=== PATIENT | male | born 1945 | race Caucasian/White ===

== ENCOUNTER 2023-05-21 08:20 | Outpatient (CLI) | payer MEDICARE, SELFPAY ==
--- NOTE | 2023-05-21 08:45 | CRLHL7_ITS ---
For Patients: As a result of the Century Cures Act, medical imaging exams and procedure reports are released immediately into your electronic medical record. You may view this report before your referring provider. If you have questions, please contact your health care provider. INDICATION: HX ANEURYSMS TECHNIQUE: Bilateral lower extremity arterial duplex ultrasound with color Doppler and spectral waveform analysis. COMPARISON: None. FINDINGS: Multiple sonographic goldberg-scale images demonstrate atherosclerotic plaque in both lower extremities. Right leg: Slightly elevated velocity within the anterior tibial artery. Remaining velocities are not elevated. Monophasic flow located within the popliteal and peroneal arteries along with the anterior tibial and dorsalis pedis arteries. Multiphasic flow elsewhere. Left leg: No elevation in the peak systolic velocity. Monophasic flow throughout the runoff extending from the proximal femoral artery through the dorsalis pedis artery with the exception of the popliteal artery where there is triphasic flow. Multiphasic flow in the common femoral and deep femoral arteries. IMPRESSION: Bilateral atherosclerosis in the lower extremity arteries. No focal high-grade stenosis. Diffuse inflow disease noted, left greater than right. Dictated by Robert Pro MD @ 05/22/2023 11:08:00 AM (Electronically Signed)
--- NOTE | 2023-05-21 10:15 | CRLHL7_ITS ---
For Patients: As a result of the Century Cures Act, medical imaging exams and procedure reports are released immediately into your electronic medical record. You may view this report before your referring provider. If you have questions, please contact your health care provider. Examination: US abdominal aorta Indication: History of aneurysms Technique: Lomas scale and color Doppler images of the aorta and common iliac arteries are obtained. Comparison: None Findings: Proximal aorta: 2.9 x 2.9 cm Mid aorta: 2.5 x 2.7 cm Distal aorta: 3.4 x 4.0 cm Right common iliac artery: 1.9 x 1.9 cm Left common iliac artery: 1.5 x 1.7 cm Recommended imaging interval for ectatic aorta: 4.0-4.4 cm: 1 year Impression: Fusiform infrarenal distal abdominal aortic aneurysm measuring 3.4 x 4.0 cm extending over a length of 5.0 cm. Dictated by Robert Pro MD @ 05/22/2023 11:33:38 AM (Electronically Signed)
== END 2023-05-21 08:21 | disposition home or self-care (01) ==
LOC: US 08:30
PROVIDERS: PCP Nurse Practitioner Gerontology; Visit Provider Nurse Practitioner Gerontology
DX: I71.40 Abdominal aortic aneurysm, without rupture, unspecified (principal); I70.203 Unspecified atherosclerosis of native arteries of extremities, bilateral legs; I72.4 Aneurysm of artery of lower extremity
CPT/HCPCS: 76775; 93926

== ENCOUNTER 2023-09-12 09:33 | Emergency (ER) | payer MEDICARE, OTHER, SELFPAY ==
[2023-09-12] VITALS (11 sets, daily range): BP systolic 120–146; BP diastolic 87–92; PULSE 71–93; RESP 18; TEMP 36.2; O2SAT 92–97; BMI 19.0
--- NOTE | 2023-09-12 09:51 | ED.NAVMDI ---
HPI - Nausea/Vomiting/Diarrhea General Date Seen: 09/12/23 Chief complaint: Nausea/Vomiting Stated complaint: Stomach pain, vomiting Time Seen by Provider: 09/12/23 09:35 Source: patient Mode of arrival: ambulatory Limitations: no limitations History of Present Illness HPI Narrative: Patient is a 78-year-old male presenting to emergency department for nausea, vomiting, abdominal pain. He states since yesterday he has been having nausea and vomiting. It started after he ate a large breakfast in toto very fall. He continues to have the sensation throughout the day and can eat any more. Last night tried to drink some kendall jalen and proceeded to vomit multiple times. Woke up this morning at 05:30 in vomited more. Last time he vomited was 08:00 today. Has not noticed any blood in his vomit. States he is having some abdominal pain mostly in his epigastric and right lower groin. Does have a history of multiple hernias with repairs. This hernia in his right groin use a goes in and out on its own but states he has been unable pressure back and since last night. It is tender to palpation. States he is not nausea right now overall symptoms feel relatively mild. No other concerns noted. Related Data Home Medications Medication Instructions Recorded Confirmed clopidogrel 75 mg tablet 75 mg PO DAILY 09/12/23 09/12/23 pantoprazole 40 mg tablet,delayed 40 mg PO DAILY 09/12/23 09/12/23 release Allergies Allergy/AdvReac Type Severity Reaction Status Date / Time No Known Drug Allergies Allergy Verified 09/12/23 09:40 Review of Systems Status of ROS: Reports: 10 or more systems reviewed and unremarkable except as noted in History and below Exam Narrative: Exam Narrative: Const: Well-nourished, Well-developed, in mild distress Eyes: PERRL, no conjunctival injection, and symmetrical lids HENT: Atraumatic external nose and ears. Moist mucous membranes. Neck: Symmetric, trachea midline, No thyromegaly. CVS: RRR, No murmurs or gallops. Peripheral pulses 2+ and equal in all extremities RESP: Unlabored respiratory effort. Clear to auscultation bilaterally. GI: Mild diffuse tenderness, Nondistended, No rebound or guarding. On reducible right inguinal hernia MSK:Extremities w/o deformity, Normal Active ROM Skin: Warm, Dry. No rashes or lesions. Neuro: Normal Muscle tone, No focal neurological deficits. Psych: Awake, Alert, & Oriented x3. Appropriate mood and affect. Const: Vital Signs, click to edit/add: Vital Signs - 24 hr 09/12/23 09:37 09/12/23 10:41 09/12/23 10:42 Temperature 97.2 F L Pulse Rate 78 84 Pulse Rate [Right Pulse Oximeter] 93 Respiratory Rate 18 Blood Pressure 146/92 H Blood Pressure [Ri ght Upper Arm] 120/87 Pulse Oximetry 94 97 95 Oxygen Delivery Me thod Room Air 09/12/23 10:45 09/12/23 11:00 09/12/23 11:15 Temperature Pulse Rate 77 74 74 Pulse Rate [Right Pulse Oximeter] Respiratory Rate Blood Pressure Blood Pressure [Ri ght Upper Arm] Pulse Oximetry 93 95 96 Oxygen Delivery Me thod 09/12/23 11:41 09/12/23 11:45 09/12/23 12:00 Temperature Pulse Rate 79 74 71 Pulse Rate [Right Pulse Oximeter] Respiratory Rate Blood Pressure Blood Pressure [Ri ght Upper Arm] Pulse Oximetry 96 95 Oxygen Delivery Me thod 09/12/23 12:15 09/12/23 12:30 Temperature Pulse Rate 80 79 Pulse Rate [Right Pulse Oximeter] Respiratory Rate Blood Pressure Blood Pressure [Ri ght Upper Arm] Pulse Oximetry 92 95 Oxygen Delivery Me thod Course Vital Signs Vital signs: Initial Vital Signs Temperature 97.2 F L 09/12/23 09:37 Temperature Source Temporal Artery Scan 09/12/23 09:37 Pulse Rate 93 09/12/23 09:37 Respiratory Rate 18 09/12/23 09:37 Blood Pressure 120/87 09/12/23 09:37 Blood Pressure Mean 98 09/12/23 09:37 Blood Pressure Position Sitting 09/12/23 09:37 Pulse Oximetry 94 09/12/23 09:37 Oxygen Delivery Method Room Air 09/12/23 09:37 Vital Signs Temperature 97.2 F L 09/12/23 09:37 Pulse Rate 93 09/12/23 09:37 Respiratory Rate 18 09/12/23 09:37 Blood Pressure 120/87 09/12/23 09:37 Pulse Oximetry 94 09/12/23 09:37 Oxygen Delivery Method Room Air 09/12/23 09:37 Temperature 97.2 F L 09/12/23 09:37 Pulse Rate 79 09/12/23 12:30 Respiratory Rate 18 09/12/23 09:37 Blood Pressure 146/92 H 09/12/23 10:41 Pulse Oximetry 95 09/12/23 12:30 Oxygen Delivery Method Room Air 09/12/23 09:37 Medications Administered Medications: Discontinued Medications Generic Name Dose Route Start Last Admin Trade Name Genet PRN Reason Stop Dose Admin Lactated Ringer's 1,000 mls @ 1,000 mls/hr 09/12/23 09:49 09/12/23 11:48 Lactated Ringers 1000 Ml IV 09/12/23 10:48 Infused .Q1H ONE Infusion Morphine Sulfate 4 mg 09/12/23 09:49 09/12/23 10:39 Morphine 4 Mg/Ml Inj IVP 09/12/23 09:50 4 mg ONCE ONE Administration Ondansetron HCl 4 mg 09/12/23 09:49 09/12/23 10:39 Ondansetron 2 Mg/Ml Inj IVP 09/12/23 09:50 4 mg ONCE ONE Administration MDM - Nausea/Vomiting/Diarrhea MDM Narrative Medical decision making narrative: Patient is a 78-year-old male presenting to the emergency department for abdominal pain and nausea. He is not currently feeling nauseated this is consistent feeling of fullness in his abdomen. He has a right inguinal hernia that is not reducible at this time. It does not appear strangulated as there is no color changes and the tenderness is relatively mild. At this time I will place him in Trendelenburg position and and plan ice pack or over the area to try and help with swelling so that it can be reduced. Also ordered CBC, troponin, CMP, EKG, COVID/flu/RSV, lipase. Morphine given for pain and Zofran for nausea. Also given L of lactated Ringer's Patient's lab work all returned showing no concerning abnormalities. COVID/flu/RSV was negative. After an hour I re-evaluated the patient in was able to reduce the hernia. After this he says all symptoms seem to have gone away and he is feeling much better. While his issues likely resolved with the reduction of the hernia I will do a CT scan to make sure there are no other abnormalities going on. His CT scan returned showing small-bowel obstruction likely from adhesions in the right lower quadrant consistent where the hernia was. I spoke to Dr. Zhang about this and she states this is likely secondary to the hernia being reduced. She states we can monitor him for 6 hours if he is able to tolerate p.o. intake he we discharged home with outpatient surgical follow-up. Of note CT scan also shows some aorta and iliac artery aneurysms. They do not meet criteria for surgical intervention at this time. Patient has been given fluids orally and he has been tolerating them well. He states he is still feeling asymptomatic we were able to monitor the patient for 4-1/2 hours he was asymptomatic throughout this time. We starting to run low in beds. I spoke to Dr. Brown she says typically she prefers 6 hours but if I feel clinically comfortable discharging the patient she is okay with it. She has once in the follow-up with general surgery. He continues to do well and is doing well with p.o. intake. He will be discharged Lab Data Labs: Lab Results 09/12/23 09/12/23 09/12/23 Range/Units 09:50 10:00 Unknown WBC 7.02 (4.50-11.00) K/uL RBC 5.30 (4.30-5.90) m/uL Hgb 16.0 (13.5-17.5) gm/dL Hct 47.6 (37.0-53.0) % MCV 90 (80-100) fL MCH 30 (26-34) pg MCHC 34 (32-36) gm/dL RDW Coeff of Ankur 13.8 (11.5-15.5) % Plt Count 274 (140-440) K/uL Neut % (Auto) 85.5 H (42.0-72.0) % Lymph % (Auto) 9.3 L (20-44) % Archuleta % (Auto) 5.1 (0.0-11.0) % Eos % (Auto) 0.0 (0.0-7.0) % Baso % (Auto) 0.1 (0.0-3.0) % Neut # (Auto) 6.00 (1.7-7.0) K/uL Lymph # (Auto) 0.70 L (0.90-2.90) K/uL Archuleta # (Auto) 0.40 (0.00-0.90) K/UL Eos # (Auto) 0.00 (0.00-0.50) K/uL Baso # (Auto) 0.01 (0.00-0.30) K/uL Abs Immat Gran (auto) 0.00 (0.00-0.30) K/uL Imm/Tot Granulo (auto) 0.0 % Sodium 136 (135-149) mmol/L Potassium 4.5 (3.6-5.1) mmol/L Chloride 101 (96-114) mmol/L Carbon Dioxide 23 (20-32) mmol/L Anion Gap 12 (7-15) mEq/L BUN 39 H (7-30) mg/dL Creatinine 0.6 (0.5-1.5) mg/dL Estimated Creat Clear 45.25 Estimated GFR 99 ml/min Glucose 136 H (60-115) mg/dL Calcium 10.0 (8.4-10.6) mg/dL Total Bilirubin 1.0 (0.1-1.5) mg/dL AST 44 H (12-35) U/L ALT 25 (4-50) U/L Alkaline Phosphatase 44 (40-150) U/L Total Protein 8.3 (6.0-8.3) g/dL Albumin 5.0 (3.3-5.0) g/dL Lipase 29 (23-300) U/L SARS-CoV-2 (PCR) Negative SARS-CoV-2 (Negative) Influenza Type A (PCR) Negative PCR FLU A (Negative) Influenza Type B (PCR) Negative PCR FLU B (Negative) RSV (PCR) Negative PCR RSV (Negative) POC Troponin I 0.02 (0.01-0.04) ng/ml Imaging Data CT scan abdomen and pelvis: Radiologist's impression: 1. Small-bowel obstruction with apparent adhesive transition point in the right lower quadrant. No findings of a closed loop morphology or ischemia. 2. 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 Abdominal aorta up to 3.5 centimeters. The right common iliac artery measures up to 2.7 centimeters. The left common iliac artery measures up to 2.5 centimeters. Please note that all CT scans at this facility use dose modulation, iterative reconstruction, and/or weight-based dosing when appropriate to reduce radiation dose to as low as reasonably achievable. Dictated by Dana Sanchez MD @ 09/12/2023 11:54:07 AM ECG Data Attestation: I personally reviewed and interpreted this ECG as follows: Prior ECG tracings: not available for review Interpretation: Normal sinus rhythm with a rate of 87 beats per minute, PVCs, left bundle branch block, appropriate discordance, no ST or T-wave abnormalities Discharge Plan Discharge Clinical Impression: Inguinal hernia Qualifiers: Obstruction and gangrene presence: without obstruction or gangrene Laterality: unilateral Recurrence: recurrent Qualified Code(s): K40.91 - Unilateral inguinal hernia, without obstruction or gangrene, recurrent Patient Disposition: Home, Self-Care Condition: Improved Instructions: Inguinal Hernia (ED) Additional Instructions: Follow-up with general surgery for your hernia call them at [phone]. Informed them that Dr. Zhang toe the ED provider that you should follow-up with general surgery. Return to emergency department if you are unable to reduce the hernia or if you develops any new or worsening symptoms as a could be is sign of severe bowel disease. Also recommend you follow-up with your primary care provider possibly vascular surgery about your aneurysms in your aorta and common iliac arteries Prescriptions: No Action clopidogrel 75 mg tablet 75 mg PO DAILY pantoprazole 40 mg tablet,delayed release (DR/EC) 40 mg PO DAILY Follow Up/Referrals: Sole Peace DNP, RN [Primary Care Provider] - Stand Alone Forms: [employer] Info Instructions
[2023-09-12 10:37] LABS: Troponin, Point-of-Care* 0.02 ng/ml (0.01-0.04)
[2023-09-12] MEDS: ONDANSETRON 2 MG/ML inj 4 MG IVP (10:39)
[2023-09-12] MEDS: MORPHINE 4 MG/ML INJ IVP (10:39)
[2023-09-12] MEDS: LACTATED RINGERS 1000 ML 1,000 ML IV (10:39)
[2023-09-12 10:53] LABS: Basophils Absolute Auto 0.01 K/uL (0.00-0.30); Basophils Percent Auto 0.1 % (0.0-3.0); Hematocrit 47.6 % (37.0-53.0); Lymphocytes Percent Auto 9.3 % (20-44); Mean Corpuscular HGB Conc 34 gm/dL (32-36); Mean Corpuscular Hemoglobin 30 pg (26-34); Mean Corpuscular Volume 90 fL (80-100); Monocytes Percent Auto 5.1 % (0.0-11.0); Neutrophils Percent Auto 85.5 % (42.0-72.0); Platelet Count* 274 K/uL (140-440); RDW Coefficient of Variation % 13.8 % (11.5-15.5); White Blood Count* 7.02 K/uL (4.50-11.00)
[2023-09-12 10:56] LABS: Slide Review Reflex No
[2023-09-12 11:00] LABS: Chloride* 101 mmol/L (96-114); Potassium* 4.5 mmol/L (3.6-5.1); Sodium* 136 mmol/L (135-149)
[2023-09-12 11:02] LABS: Creatinine* 0.6 mg/dL (0.5-1.5); Est. Creatinine Clearance* 45.25; Estimated Glomerular Filt Rate 99 ml/min
[2023-09-12 11:03] LABS: Alanine Aminotransferase* 25 U/L (4-50); Alkaline Phosphatase* 44 U/L (40-150); Anion Gap 12 mEq/L (7-15); Aspartate Amino Transferase* 44 U/L (12-35); Blood Urea Nitrogen* 39 mg/dL (7-30); Carbon Dioxide* 23 mmol/L (20-32); Glucose* 136 mg/dL (60-115); Lipase* 29 U/L (23-300); Total Protein* 8.3 g/dL (6.0-8.3)
--- NOTE | 2023-09-12 11:22 | CT_ITS ---
Patient: LOVE MALONE Facility:?[facility] Patient ID:?[id number] Site Patient ID:?[id number]. Site :?[id number] Study:?CT-Abdomen/Pelvis w/ 56cc [id number]/24/2024 11:38:33 AM Ordering Physician:Leigh Cooper Final Report: Indication: Nausea vomiting and abdominal pain. Right inguinal hernia. Technique: CT abdomen pelvis with IV contrast. Multiplanar reformats are included. Contrast: 56 mL Isovue [address] Please note that all CT scans at this facility use dose modulation, iterative reconstruction, and/or weight-based dosing when appropriate to reduce radiation dose to as low as reasonably achievable. Comparison: None Findings: Lung bases are clear. The liver and hepatic vasculature is normal. The gallbladder is significantly distended. There is mild intrahepatic and extrahepatic biliary ductal dilatation with tapering towards the ampulla. The pancreas is normal. The spleen is normal. The adrenal glands are normal. Small left renal cyst. The kidneys are otherwise normal. The urinary tract is normal. The urinary bladder is partially filled and appears normal. Heavy atherosclerotic calcifications. Infrarenal aortic aneurysm measuring up to 3.5 centimeters. Bilateral common iliac artery aneurysms extending all the way to the bifurcation. The stomach is decompressed. The duodenum is decompressed. The proximal small bowel is decompressed. There is dilated distal small bowel in the pelvis. Luminal diameter up to 3.3 centimeters. The wall is thin and normally enhancing. Suspect there is a focal transition point in the right lower quadrant posteriorly. No closed loop morphology or findings of ischemia. There is a small amount of stool in the colon. The colon is not dilated. Minimal fluid in the right inguinal hernia. No bowel seen within the hernia. Severely low visceral and subcutaneous fat. No focal bone lesions. No fractures. Impression: 1. Small-bowel obstruction with apparent adhesive transition point in the right lower quadrant. No findings of a closed loop morphology or ischemia. 2. 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 Abdominal aorta up to 3.5 centimeters. The right common iliac artery measures up to 2.7 centimeters. The left common iliac artery measures up to 2.5 centimeters. Please note that all CT scans at this facility use dose modulation, iterative reconstruction, and/or weight-based dosing when appropriate to reduce radiation dose to as low as reasonably achievable. Dictated by Dana Sanchez MD @ 09/12/2023 11:54:07 AM Signed by:?Dana Sanchez MD @09/12/2023 11:54:07 AM (Electronic Signature)
[2023-09-12 11:23] LABS: PCR FLU A Negative PCR FLU A (Negative); PCR FLU B Negative PCR FLU B (Negative); PCR RSV Negative PCR RSV (Negative); SARS PCR* Negative SARS-CoV-2 (Negative)
--- NOTE | 2023-09-12 12:51 | ED.NURSE ---
Patient given apple juice and jello.
--- NOTE | 2023-09-12 13:09 | ED.NURSE ---
Checked on patient at this time, no pain and tolerating clear liquids with no concerns. States he plans to rest the majority of the day since he didn't get much sleep last night.
--- NOTE | 2023-09-12 14:29 | ED.NURSE ---
Checked in on patient at this time, he is sleeping soundly.
== END 2023-09-12 15:35 | disposition home or self-care (01) ==
PROVIDERS: Emergency Provider Student in an Organized Health Care Education/Training Program; PCP Nurse Practitioner Gerontology
DX: K40.90 Unilateral inguinal hernia, without obstruction or gangrene, not specified as recurrent (principal)
CPT/HCPCS: 36415; 74177; 80053; 83690; 84484; 85025; 87631; 93005; 96361; 96374; 96375; 99283; 99284; 99285; J2270; J2405; J7120; Q9967

== ENCOUNTER 2023-10-25 15:31 | Day surgery (SDC) | payer MEDICARE, OTHER, SELFPAY ==
[2023-10-25 15:40] VITALS: BP 183/106; PULSE 67; RESP 16; TEMP 36.4; O2SAT 98; BMI 18.3
--- NOTE | 2023-10-25 16:27 | ED.ABDPAIN ---
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 Patient notes that shortly after breakfast at 0900 hours he had bulging in this area. He states he tried to walk it off but it has not helped. Any sort of pressure on the area increases pain. He does endorse some bloating as he states he had a large meal at lunch. He notes no nausea at this point. Previous visit for this thing resulted in reduction of the hernia. He did tolerate morphine without difficulty. No recent fever or chills. Denies dysuria hematuria but does need to use the restroom. 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 He has met with a vascular surgeon Dr. Bettina Haque. Related Data Home Medications Medication Instructions Recorded Confirmed clopidogrel 75 mg tablet 75 mg PO DAILY 09/12/23 10/01/23 pantoprazole 40 mg tablet,delayed 40 mg PO DAILY 09/12/23 10/01/23 release aspirin 81 mg chewable tablet 81 mg PO QDAY 10/01/23 10/01/23 hydrocortisone 2.5 % topical cream applic topical 10/01/23 10/01/23 pseudoephedrine HCl 30 mg tablet 30 mg PO Q4-6H PRN 10/01/23 10/01/23 (Sudafed) rosuvastatin 10 mg tablet 10 mg PO QPM 10/01/23 10/01/23 Allergies Allergy/AdvReac Type Severity Reaction Status Date / Time No Known Drug Allergies Allergy Verified 10/01/23 13:55 Review of Systems Status of ROS Reports: 10 or more systems reviewed and unremarkable except as noted in History and below Const Denies: fever or chills ENMT Denies: neck pain or throat swelling Cardio Denies: chest pain, swelling of feet/ankles, lightheadedness or shortness of breath with exertion Resp Denies: shortness of breath or cough GI Reports: abdominal pain and bloating; Denies: nausea, vomiting, diarrhea, constipation or blood in stool Denies: painful urination or urinary frequency Musculo Denies: neck pain Allergy/Immuno Denies: throat swelling Exam Narrative: Exam Narrative: Patient is alert and oriented. Does not appear to be any significant distress. External ears eyes nose clear. Oral cavity with moist mucous membranes. Neck is supple. Heart with regular rate and rhythm and lungs are clear bilaterally. Abdomen is with a obvious golf size type bulge at the right groin attempts at reduction increased pain greatly. Decreased bowel sounds are noted. Moving all extremities. No obvious erythema. Const: Vital Signs, click to edit/add: Vital Signs - 24 hr 10/25/23 15:40 Temperature 97.5 F L Pulse Rate [Pulse Oximeter] 67 Respiratory Rate 16 Blood Pressure [Ri ght Upper Arm] 183/106 H Pulse Oximetry 98 Oxygen Delivery Me thod Room Air Documenting provider has reviewed patient's vital signs: yes Course Course ED Course: At this time patient has a golf size bulging right groin superior to the ligament. Attempts at reduction unsuccessful and thus we will place an IV and use morphine 4 mg Zofran 4 mg and attempt reduction. Have added lactate to labs to include CBC, comprehensive panel, CRP. At this point greater than 7 hours have elapsed since patient 1st noticed this bulging. Reevaluation(s) Reevaluation #1: Initial attempts at hernia reduction unsuccessful. Patient noted to have significant discomfort in spite of morphine use. Have replaced ice to this area and ordered additional 4 mg of morphine. Patient in Trendelenburg. Reevaluation #2: My colleague Dr. Fisher and I both try to reduce hernia and were unsuccessful in this. Surgeon notified and it is going to attempt to help us with this endeavor. Will plan on additional pain medication about 15 minutes prior to surgeon arrival. Reevaluation #3: Unfortunately ease surgeon could not reduce hernia. He will need surgery but of course is at higher risk given his history. I do speak to Rich and he also did describes past history of bilateral DVT post hernia repair in 2013. I have asked Dr. Virgen our hospitalist to consult on this gentleman. Rich does tell me that he wishes to be DNR DNI if something would happen the operating room. I do speak with Rich with his son present. At this time he is at increased risk undergoing anesthesia with his history and age. Vital Signs Vital signs: Initial Vital Signs Temperature 97.5 F L 10/25/23 15:40 Temperature Source Temporal Artery Scan 10/25/23 15:40 Pulse Rate 67 10/25/23 15:40 Respiratory Rate 16 10/25/23 15:40 Blood Pressure 183/106 H 10/25/23 15:40 Blood Pressure Mean 131 H 10/25/23 15:40 Pulse Oximetry 98 10/25/23 15:40 Oxygen Delivery Method Room Air 10/25/23 15:40 Vital Signs Temperature 97.5 F L 10/25/23 15:40 Pulse Rate 67 10/25/23 15:40 Respiratory Rate 16 10/25/23 15:40 Blood Pressure 183/106 H 10/25/23 15:40 Pulse Oximetry 98 10/25/23 15:40 Oxygen Delivery Method Room Air 10/25/23 15:40 Temperature 97.5 F L 10/25/23 15:40 Pulse Rate 67 10/25/23 15:40 Respiratory Rate 16 10/25/23 15:40 Blood Pressure 183/106 H 10/25/23 15:40 Pulse Oximetry 98 10/25/23 15:40 Oxygen Delivery Method Room Air 10/25/23 15:40 Medications Administered Medications: Discontinued Medications Generic Name Dose Route Start Last Admin Trade Name Freq PRN Reason Stop Dose Admin Hydromorphone HCl 0.5 mg 10/25/23 17:58 10/25/23 18:31 Hydromorphone 0.5 Mg/0.5 Ml Inj IVP 10/25/23 17:59 0.5 mg ONCE ONE Administration Morphine Sulfate 4 mg 10/25/23 16:33 10/25/23 16:44 Morphine 4 Mg/Ml Inj IVP 10/25/23 16:34 4 mg ONCE ONE Administration Morphine Sulfate 4 mg 10/25/23 17:28 10/25/23 17:46 Morphine 4 Mg/Ml Inj IVP 10/25/23 17:29 4 mg ONCE ONE Administration Ondansetron HCl 4 mg 10/25/23 16:33 10/25/23 16:44 Ondansetron 2 Mg/Ml Inj IVP 10/25/23 16:34 4 mg ONCE ONE Administration MDM - Abdominal Pain MDM Narrative Medical decision making narrative: 1. Incarcerated inguinal hernia-failed attempts at reduction by myself, a partner as well as surgeon. Lactate is 1.0. The decision for surgery is challenging given his history. I have asked Dr. Virgen hospitalist to consult on this case. I do discuss with patient with family present that he is a higher risk for surgical complications. I do ask him about code status. If something would happen to his heart he would not want to be resuscitated. Therefore I do state he would be DNI DNI with family present. This was conveyed to Dr. Virgen. 2. History of vascular aneurysms -very aneurysm 3 mm noted by neurologist. Follow-up with Neuro recommended. Abdominal aortic aneurysm 3 cm and iliac aneurysm noted. However they do not approach surgical intervention at this time. No particular care at this time and they do suggest continued monitoring. 3. Disposition -admit to same-day surgery under the care of . Dr. Virgen has consulted in feels this gentleman is safe for surgery. Dr. Virgen agrees to be primary with surgical consult. Currently pending is an EKG. I have also started maintenance fluids at 125 mL an hour lactated Ringer's. Medical Records Attestation: I reviewed the patient's medical records. Lab Data Attestation: I reviewed the patient's lab results. Labs: Lab Results 10/25/23 Range/Units 16:39 WBC 3.78 L (4.50-11.00) K/uL RBC 4.54 (4.30-5.90) m/uL Hgb 13.8 (13.5-17.5) gm/dL Hct 41.8 (37.0-53.0) % MCV 92 (80-100) fL MCH 30 (26-34) pg MCHC 33 (32-36) gm/dL RDW Coeff of Ankur 14.6 (11.5-15.5) % Plt Count 230 (140-440) K/uL Neut % (Auto) 52.5 (42.0-72.0) % Lymph % (Auto) 27.2 (20-44) % [place]ory % (Auto) 11.6 H (0.0-11.0) % Eos % (Auto) 7.4 H (0.0-7.0) % Baso % (Auto) 1.3 (0.0-3.0) % Neut # (Auto) 2.00 (1.7-7.0) K/uL Lymph # (Auto) 1.00 (0.90-2.90) K/uL [place] # (Auto) 0.40 (0.00-0.90) K/UL Eos # (Auto) 0.30 (0.00-0.50) K/uL Baso # (Auto) 0.00 (0.00-0.30) K/uL Abs Immat Gran (auto) 0.00 (0.00-0.30) K/uL Imm/Tot Granulo (auto) 0.0 % Sodium 136 (135-149) mmol/L Potassium 4.1 (3.6-5.1) mmol/L Chloride 102 (96-114) mmol/L Carbon Dioxide 29 (20-32) mmol/L Anion Gap 5 L (7-15) mEq/L BUN 22 (7-30) mg/dL Creatinine 0.7 (0.5-1.5) mg/dL Estimated Creat Clear 43.66 Estimated GFR 95 ml/min Glucose 115 (60-115) mg/dL Lactate 1.0 (0.5-1.9) mmol/L Calcium 9.4 (8.4-10.6) mg/dL Total Bilirubin 0.4 (0.1-1.5) mg/dL AST 30 (12-35) U/L ALT 18 (4-50) U/L Alkaline Phosphatase 47 (40-150) U/L C-Reactive Protein < 0.5 L (0.5-1.0) mg/dL Total Protein 6.9 (6.0-8.3) g/dL Albumin 4.1 (3.3-5.0) g/dL ECG Data Attestation: I personally reviewed and interpreted this ECG as follows: Interpretation: EKG by my read shows sinus rhythm. Left bundle branch block is present. QT and IA intervals within normal limits. Compared with EKG from August of 2019 for this is largely unchanged. Critical Care Time Critical Care Time Critical Care Time: Yes Attestation: The patient required my highest level preparedness to intervene emergently and I personally spent this critical care time directly and personally managing the patient. This critical care time included: Obtaining a history; Examining the patient; Pulse oximetry; Ordering and reviewing of studies; Arranging urgent treatment with development of a management plan; Evaluation of patients response to treatment; Frequent reassessment discussions with other providers. This critical care time was performed to assess and manage the high probability of imminent life-threatening deterioration that could result in multiorgan failure. It was exclusive of separate billable procedures and treating other patients and teaching time. Total Critical Care Time in Minutes: 60 Discharge Plan Discharge Clinical Impression: Right inguinal hernia Patient Disposition: XFER to OR Condition: Guarded Follow Up/Referrals: Sole Peace DNP, RN [Primary Care Provider] -
[2023-10-25] MEDS: ONDANSETRON 2 MG/ML inj 4 MG IVP (16:44)
[2023-10-25] MEDS: MORPHINE 4 MG/ML INJ IVP ×2 (16:44→17:46)
[2023-10-25 16:47] LABS: Basophils Percent Auto 1.3 % (0.0-3.0); Eosinophils Percent Auto 7.4 % (0.0-7.0); Hematocrit 41.8 % (37.0-53.0); Hemoglobin* 13.8 gm/dL (13.5-17.5); Lymphocytes Percent Auto 27.2 % (20-44); Mean Corpuscular HGB Conc 33 gm/dL (32-36); Mean Corpuscular Hemoglobin 30 pg (26-34); Mean Corpuscular Volume 92 fL (80-100); Monocytes Percent Auto 11.6 % (0.0-11.0); Neutrophils Percent Auto 52.5 % (42.0-72.0); Platelet Count* 230 K/uL (140-440); RDW Coefficient of Variation % 14.6 % (11.5-15.5); Red Blood Count 4.54 m/uL (4.30-5.90); White Blood Count* 3.78 K/uL (4.50-11.00)
[2023-10-25 16:48] LABS: Slide Review Reflex No
[2023-10-25 16:59] LABS: Albumin* 4.1 g/dL (3.3-5.0); Chloride* 102 mmol/L (96-114); Potassium* 4.1 mmol/L (3.6-5.1); Sodium* 136 mmol/L (135-149)
[2023-10-25 17:01] LABS: Bilirubin Total* 0.4 mg/dL (0.1-1.5); Creatinine* 0.7 mg/dL (0.5-1.5); Est. Creatinine Clearance* 43.66; Estimated Glomerular Filt Rate 95 ml/min
[2023-10-25 17:02] LABS: Alanine Aminotransferase* 18 U/L (4-50); Alkaline Phosphatase* 47 U/L (40-150); Anion Gap 5 mEq/L (7-15); Aspartate Amino Transferase* 30 U/L (12-35); Blood Urea Nitrogen* 22 mg/dL (7-30); Carbon Dioxide* 29 mmol/L (20-32); Glucose* 115 mg/dL (60-115); Total Protein* 6.9 g/dL (6.0-8.3)
[2023-10-25 17:03] LABS: Calcium* 9.4 mg/dL (8.4-10.6)
[2023-10-25 17:05] LABS: C Reactive Protein* < 0.5 mg/dL (0.5-1.0)
[2023-10-25] MEDS: HYDROmorphone 0.5 mg/0.5 ml inj IVP (18:31)
--- NOTE | 2023-10-25 19:25 | PM.GSHP ---
History of Present Illness History of Present Illness Date Seen: 10/25/23 Chief complaint: bowel obstruction Narrative: Rich Lua is a 78 year old male who presented to the emergency department with an incarcerated right inguinal hernia. He does have a known hernia on that side and was originally scheduled to have it repaired by myself on 10/20/2023. Unfortunately this surgery was cancelled due to a recent diagnosis of reyes aneurysm found on angiogram. He has not yet been seen by Neurology for evaluation. Patient does have a known history of multiple aneurysms including aortic, thoracic, bilateral iliac and popliteal bilaterally. He does have a history of bilateral popliteal aneurysm repair. Patient states that shortly after breakfast he had a bulging in the right groin. This has happened in the past. He tried to walk it off, but that did not help. Any sort of pressure to the area caused an increase in pain. He did have a large meal at lunch, which cause some bloating. He has not eaten since noon. He has tried to ice the area and the hernia has been attempted to be reduced x2 here in the emergency department, but still persists. The area is tender to palpation. No recent fever chills. He has not had any nausea or vomiting. Review of Systems Status of ROS: Reports: 6 or more systems reviewed and unremarkable except as noted in History and below Meds Home Medications and Allergies Home Medications Medication Instructions Recorded Confirmed Type clopidogrel 75 mg tablet 75 mg PO DAILY 09/12/23 10/01/23 History pantoprazole 40 mg tablet,delayed 40 mg PO DAILY 09/12/23 10/01/23 History release aspirin 81 mg chewable tablet 81 mg PO QDAY 10/01/23 10/01/23 History hydrocortisone 2.5 % topical cream applic topical 10/01/23 10/01/23 History pseudoephedrine HCl 30 mg tablet 30 mg PO Q4-6H PRN 10/01/23 10/01/23 History (Sudafed) rosuvastatin 10 mg tablet 10 mg PO QPM 10/01/23 10/01/23 History Allergies Allergy/AdvReac Type Severity Reaction Status Date / Time No Known Drug Allergies Allergy Verified 10/01/23 13:55 Exam Narrative: Exam Narrative: General: Alert and oriented, no acute distress. Respiratory: Equal breath rise bilaterally, clear breath sounds bilaterally CV: Well perfused Abdomen: Soft, nontender nondistended : Golf sized bulge of the right groin. A reduction was attempted and not successful. Area is tender to palpation. No overlying erythema to the area. Const: Vital Signs, click to edit/add: Vital Signs - 24 hr 10/25/23 15:40 Temperature 97.5 F L Pulse Rate [Pulse Oximeter] 67 Respiratory Rate 16 Blood Pressure [Ri ght Upper Arm] 183/106 H Pulse Oximetry 98 Oxygen Delivery Me thod Room Air Results Results Labs: No leukocytosis or elevation in CRP. Progress Note:A&P Assessment and plan (1) Right inguinal hernia: Status: Acute Assessment and Plan: Patient is a 78-year-old male who presents with an incarcerated right inguinal hernia. This is not able to be reduced at bedside. Risks and benefits of operative intervention were discussed at length with the patient. Patient does have a high risk of postop complication, given his history of aneurysms and current reyes aneurysm being evaluation by Neuro Interventional radiology. He continues on Plavix and aspirin, no other anticoagulation. He is not a candidate for a spinal anesthesia. Would plan for an open approach under mac and local anesthesia. If there is evidence of necrotic bowel within the hernia the anesthesia will need to be converted to a general anesthetic in order to proceed with a bowel resection. Risks and benefits of operative repair were discussed at length with the patient. Risks included, but were not limited to: Bleeding, infection, risk of damage to surrounding structures, risk of recurrence and expected postop recovery. All questions and concerns were addressed with patient agreeing to proceed.
[2023-10-25] MEDS: LACTATED RINGERS 1000 ML 1,000 ML 125 ML IV (21:00)
[2023-10-25] MEDS: PIPERACILLIN/TAZOBACTAM 3.375 GM INJ IVPB (21:40)
[2023-10-25] MEDS: BUPIVACAINE 0.25% 30 ML INJECTION (21:52)
--- NOTE | 2023-10-25 22:03 | P.IMHP_ITS ---
Hospitalist- H&P: ROSMERY History of Present Illness Date Seen: 10/25/23 Chief complaint: bowel obstruction Narrative: Rich Lua is a 78 year old male admitted through the emergency department with a right inguinal hernia. Patient has a history of right inguinal hernia which has been bothering him on and off for months. Typically he gets a pain which causes him to throw up and then he feels better. September 12 he came to the emergency room because he was not feeling better. He had a hernia reduced during that visit. He was to have surgery to have a hernia repair but this was postponed due to concerns about multiple aneurysms. His pain started around lunch today. He has not had any vomiting today. He otherwise reports generally feeling well. His longstanding known aneurysms. Popliteal aneurysms were repaired in 2014 and 2019. He also has an infrarenal abdominal aortic aneurysm which is 3 x 3 cm and right common iliac artery aneurysm at 2.5 cm and left common iliac artery aneurysm at 2.9 cm. He has a 3 mm right supraclinoid ICA aneurysm. He was seen by Dr Av Christy, endovascular surgery at [place]. The plan outlined on 10/20/2023 was to do ongoing surveillance of his AAA and iliac aneurysms. (Repair of the AAA at 5.5 cm and the iliac aneurysms at 3.5 cm). Refer to Interventional Neuro Radiology for recommendations about the reyes aneurysm. Patient is unaware of personal or family history of other connective tissue disease problems other than his aneurysms and hernias. He has had previous DVT following a previous hernia surgery. Patient is unaware of previous atherosclerotic obstructive vascular disease. Patient is on dual anti-platelet therapy and statin. Denies a history of bleeding except on his dual anti platelet therapy he does bleed more easily Review of Systems Narrative: Reports generally feeling well other than as noted above [facility] Medical History (Updated 10/25/23 @ 22:33 by Miguel Angel Virgen MD) Chronic rhinitis ?J31.0 - Chronic rhinitis (ICD-10) DVT (deep venous thrombosis) ?I82.409 - Acute embolism and thrombosis of unspecified deep veins of unspecified lower extremity (ICD-10) Aneurysm of abdominal aorta ?I71.40 - Abdominal aortic aneurysm, without rupture, unspecified (ICD-10) Aneurysm artery, iliac common ?I72.3 - Aneurysm of iliac artery (ICD-10) Aneurysm artery, popliteal ?I72.4 - Aneurysm of artery of lower extremity (ICD-10) Surgical History (Updated 10/25/23 @ 22:24 by Miguel Angel Virgen MD) History of hernia repair ?Z98.890 - Other specified postprocedural states (ICD-10) ?Z87.19 - Personal history of other diseases of the digestive system (ICD-10) Family History (Updated 10/25/23 @ 22:26 by Miguel Angel Virgen MD) Father COPD (chronic obstructive pulmonary disease) Mother Stroke Brother Kidney disease Social History (Updated 10/25/23 @ 22:27 by Miguel Angel Virgen MD) Narrative: He lives in [place] at [facility] for the last 5 her 6 months. Prior to that lived in [facility]. 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 Code status is DNR DNI. He did not smoke but reports a lot of secondhand smoke. He rarely drinks alcohol. No recreational drug use. Meds Home Medications and Allergies Home Medications Medication Instructions Recorded Confirmed Type clopidogrel 75 mg tablet 75 mg PO DAILY 09/12/23 10/01/23 History pantoprazole 40 mg tablet,delayed 40 mg PO DAILY 09/12/23 10/01/23 History release aspirin 81 mg chewable tablet 81 mg PO QDAY 10/01/23 10/01/23 History hydrocortisone 2.5 % topical cream applic topical 10/01/23 10/01/23 History pseudoephedrine HCl 30 mg tablet 30 mg PO Q4-6H PRN 10/01/23 10/01/23 History (Sudafed) rosuvastatin 10 mg tablet 10 mg PO QPM 10/01/23 10/01/23 History Allergies Allergy/AdvReac Type Severity Reaction Status Date / Time No Known Drug Allergies Allergy Verified 10/01/23 13:55 Exam Narrative: Exam Narrative: He is alert and appears in no distress. Head is without trauma. Eyes are normal. Oropharynx with very dry mucous membranes. Neck is supple without mass or adenopathy. Respirations are clear to auscultation. Cardiovascular: S1, S2, regular rate and rhythm. No murmur gallop or rub. Abdomen: Bowel sounds diminished. Abdomen is soft with some voluntary guarding. No peritonitis. A tender 4 cm lump is palpated in the area of the right inguinal canal. This is not easily reduced. Extremities with bilateral diminished pedal pulses. Feet are cool to touch. He moves all 4 extremities well. No edema. No rash Const: Vital Signs, click to edit/add: Vital Signs - 24 hr 10/25/23 15:40 Temperature 97.5 F L Pulse Rate [Pulse Oximeter] 67 Respiratory Rate 16 Blood Pressure [Ri ght Upper Arm] 183/106 H Pulse Oximetry 98 Oxygen Delivery Me thod Room Air Documenting provider has reviewed patient's vital signs: yes Hospitalist - H&P: Result Labs Labs: Short CBC 10/25/23 Range/Units 16:39 WBC 3.78 L (4.50-11.00) K/uL Hgb 13.8 (13.5-17.5) gm/dL Hct 41.8 (37.0-53.0) % Plt Count 230 (140-440) K/uL BMP 10/25/23 16:39 Sodium 136 Potassium 4.1 Chloride 102 Carbon Dioxide 29 BUN 22 Creatinine 0.7 Glucose 115 Calcium 9.4 Liver Function 10/25/23 Range/Units 16:39 Total Bilirubin 0.4 (0.1-1.5) mg/dL AST 30 (12-35) U/L ALT 18 (4-50) U/L Alkaline Phosphatase 47 (40-150) U/L Albumin 4.1 (3.3-5.0) g/dL Imaging CT scan - abdomen: Radiologist's impression: Final Report: FROM 09/12/2023 Indication: Nausea vomiting and abdominal pain. Right inguinal hernia. Technique: CT abdomen pelvis with IV contrast. Multiplanar reformats are included. Contrast: 56 mL Isovue [address] note [address] all [address] scans at this facility use dose modulation, iterative reconstruction, and/or weight-based dosing when appropriate to reduce radiation dose to as low as reasonably achievable. Comparison: None Findings: Lung bases are clear. The liver and hepatic vasculature is normal. The gallbladder is significantly distended. There is mild intrahepatic and extrahepatic biliary ductal dilatation with tapering towards the ampulla. The pancreas is normal. The spleen is normal. The adrenal glands are normal. Small left renal cyst. The kidneys are otherwise normal. The urinary tract is normal. The urinary bladder is partially filled and appears normal. Heavy atherosclerotic calcifications. Infrarenal aortic aneurysm measuring up to 3.5 centimeters. Bilateral common iliac artery aneurysms extending all the way to the bifurcation. The stomach is decompressed. The duodenum is decompressed. The proximal small bowel is decompressed. There is dilated distal small bowel in the pelvis. Luminal diameter up to 3.3 centimeters. The wall is thin and normally enhancing. Suspect there is a focal transition point in the right lower quadrant posteriorly. No closed loop morphology or findings of ischemia. There is a small amount of stool in the colon. The colon is not dilated. Minimal fluid in the right inguinal hernia. No bowel seen within the hernia. Severely low visceral and subcutaneous fat. No focal bone lesions. No fractures. Impression: 1. Small-bowel obstruction with apparent adhesive transition point in the right lower quadrant. No findings of a closed loop morphology or ischemia. 2. 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 Abdominal aorta up to 3.5 centimeters. The right common iliac artery measures up to 2.7 centimeters. The left common iliac artery measures up to 2.5 centimeters. Assessment and Plan Assessment and plan (1) Incarcerated right inguinal hernia: Problem comment: Hernia unable to be reduced in the emergency department. Patient will be taken to the OR by Dr. Zhang. Status: Acute (2) DVT (deep venous thrombosis): Problem comment: History of DVT after hernia repair. Given this history would recommend DVT prophylaxis following surgery. He is at risk for bleeding complications due to being on both aspirin and Plavix however. Review with surgery. Status: Inactive Plan Patient is admitted the hospital for surgery for hernia repair for incarcerated hernia. Despite his known aneurysms I think it is reasonable to proceed to surgery tonight. Plan for the aneurysms is surveillance at this time. Recommend postop DVT prophylaxis with history of previous DVT after hernia surgery. This should be done in the context of the complexity of surgery, intraoperative bleeding and his ongoing use of aspirin and Plavix. Total Time Spent Total Time Spent: Total time spent today is 80 minutes, 60 minutes in coordination of care discussing with patient family and other providers management of incarcerated hernia and aneurysms
--- NOTE | 2023-10-25 23:18 | PM.GSPRC ---
Operative Note Date of procedure: 10/25/23 Pre-op diagnosis: Incarcerated right inguinal hernia Post-op diagnosis: Same Type of Procedure: Open right inguinal hernia repair with placement of mesh Indications: Patient is a 78-year-old male who presented to the emergency department with evidence of incarcerated bowel in his right inguinal hernia. Risks and benefits of operative intervention were discussed at length with the patient. Patient is at increased risk for postoperative complication given his comorbidities. Due to the presence of bowel within the hernia that was unable to be reduced I am recommending emergency surgery. Risks and benefits of operative intervention were discussed at length with the patient. Risks included but was not limited to: Bleeding, infection, risk of damage to surrounding structures, possible need for additional procedures, possible need to convert to an open operation and postoperative complications such as pneumonia, pulmonary emboli or NE. All questions and concerns were addressed with the patient agreeing to proceed. Procedure Description: After discussing the risks and benefits of the procedure, the patient signed informed consent.? The operative site was marked and the patient was brought to the operating room and placed on the operating table in supine position.? Care was taken to pad the patient's pressure points.?? The patient was then given sedation by anesthesia.?? The operative site was then prepped and draped in the usual sterile fashion.? A time-out was then performed. Evidence of a previously well-healed surgical incision. Just inferior to the incision was a bulge in the right groin. Local anesthetic was injected into the skin and subcutaneous tissue overlying the inguinal canal. An oblique incision was made just above the incarcerated hernia sac. Dissection was carried down into the subcutaneous tissue using cautery. Very minimal subcutaneous tissue due to patient's body habitus. The external oblique was identified and the overlying fascia sharply incised. This was opened superior and inferiorly. The hernia sac with incarcerated bowel was seen just lateral to the cord structures and previously incorporated mesh. The hernia sac was circumferentially dissected out. A right angle was placed into the superior aspect of the defect and opened with cautery. The incarcerated bowel was then easily reduced into the abdomen. The peritoneum of the hernia sac was sharply incised and the underlying bowel evaluated within the abdomen. The bowel appeared intact with no evidence of overt necrosis. The hernia sac was then tied off with 2-0 Vicryl and excised. The hernia sac was passed off the back table to be sent to pathology. The hernia stump was reduced into the abdomen. The borders of the fascial defect were evaluated. Just medial to the opening was the previously placed mesh. The cord structures were palpated medially. The defect did not involve the internal inguinal ring. Lateral to the opening was attenuated tissue. The patient has a known arterial aneurysm that was easily palpated in this area and just underneath the attenuated tissue laterally. The decision was made for a plug and patch mesh. A large plug was placed within the fascial defect. This was secured with interrupted 0 Nurolon suture. The overlying patch was secured in place on the pubic tubercle. Medially the mesh was secured with interrupted 0 Nurolon suture along the scarred in mesh. Laterally the mesh was secured with interrupted 0 Nurolon suture to the aponeurosis of the external oblique. Care was taken during this portion of the procedure not to injure the underlying arterial aneurysm. The external oblique fascia was then reapproximated with absorbable suture. The wound was then closed in layers. The skin was then closed with a running subcuticular suture. Sterile dressings were applied. Instrument sponge and needle counts were correct at the end of the case. The patient was woken and taken to the PACU in stable condition. Findings: Recurrent right inguinal hernia with incarcerated small bowel. No evidence of bowel necrosis. Anesthesia: MAC and local Surgeon: Maria Elena Zhang MD Estimated blood loss (mL): 5 Condition: stable Disposition: PACU
--- NOTE | 2023-10-25 23:32 | W.ANESCHARGE ---
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
[2023-10-25 23:40] VITALS: BP 166/90; PULSE 90; RESP 16; TEMP 36.8; O2SAT 93
[2023-10-25 23:41] VITALS: BP 166/100; PULSE 90; RESP 16; TEMP 36.8; O2SAT 93
[2023-10-25 23:51] VITALS: BP 173/106; PULSE 85; RESP 16; TEMP 36.6; O2SAT 93
[2023-10-26] VITALS (8 sets, daily range): BP systolic 132–157; BP diastolic 85–101; PULSE 70–84; RESP 14–16; TEMP 36.6–37.1; O2SAT 92–96
[2023-10-26] MEDS: LACTATED RINGERS 1000 ML 1,000 ML 125 ML IV (00:54)
[2023-10-26] MEDS: HYDROCODONE-ACETAMIN 5-325 MG 1 TAB PO (06:02)
--- NOTE | 2023-10-26 06:23 | PC.NURSE ---
Mop Handle Assembler took patient over from -:?Pt pleasant and cooperative. Using urinal at bedside. Rating abd pain 2-5/10, 2 tabs narco given.?Dressing to abd intact. Bowel tones active. Tolerating fluids. ?
== END 2023-10-26 10:42 | disposition home or self-care (01) ==
LOC: ED 21:03 → SS 21:24 → MEDSURG 23:40
PROVIDERS: Emergency Provider Family Medicine; PCP Nurse Practitioner Gerontology; Visit Provider Surgery
PROC: (CPT 49650; principal; 2023-10-25 21:15)
DX: K40.30 Unilateral inguinal hernia, with obstruction, without gangrene, not specified as recurrent (principal); I67.1 Cerebral aneurysm, nonruptured; Z86.79 Personal history of other diseases of the circulatory system; I44.7 Left bundle-branch block, unspecified; Z86.718 Personal history of other venous thrombosis and embolism; Z79.02 Long term (current) use of antithrombotics/antiplatelets; Z79.82 Long term (current) use of aspirin
CPT/HCPCS: 49521; 00830; 36415; 80053; 83605; 85025; 86140; 99140; 99285; 99291; A9270; C1781; J0665; J1170; J2250; J2270; J2405; J2543; J2704; J3490; J7120